=== PATIENT | female | born 1985 | race Caucasian/White ===

== ENCOUNTER 2019-07-03 07:47 | Day surgery (SDC) | payer BC, OTHER ==
[~2019-07-03] VITALS: Ht 172.7 cm; Wt 116.9 kg
[2019-07-03] VITALS (10 sets, daily range): BP systolic 103–142; BP diastolic 56–75; PULSE 54–68; TEMP 97.6–97.9
[~2019-07-03 07:47] MED LIST: MOTRIN 600600 MG/TAB PO; MOTRIN 800800 MG/TAB PO; PERCOCET 325 MG1 TA2 PO
[2019-07-03] MEDS ORDERED: MOBIC15 MG PO (08:29)
[2019-07-03] MEDS ORDERED: MULTIPLE VITAMI1 CAP PO (08:30)
--- NOTE | 2019-07-03 08:32 | NUR ---
TO RM AT 0758- CALL LIGHT IN REACH AT BEDSIDE
--- NOTE | 2019-07-03 12:30 | NUR ---
Patient to room 221 via bed from PACU. Patient sleepy, but arouses to name and answers questions appropriately. IV to left wrist with LR infusing per orders. 4 bandaids to abdomen, CDI. SCDs on. Plan of care reviewed. Call light within reach.
[2019-07-04 01:45] VITALS: BP 116/62; PULSE 61; TEMP 98
[2019-07-04 04:44] VITALS: BP 112/64; PULSE 69; TEMP 97.9
--- NOTE | 2019-07-04 07:00 | NUR ---
0700-Patient ambulatory on unit, steady gait. Attempts voiding 900ml clear yellow urine. Asssessment complete. Abdomen with robotic sites x 4 covered with bandaids C/D/I. Denies flatus or nausea. Updated on plan of care.
[2019-07-04 07:43] VITALS: BP 108/53; PULSE 55; TEMP 98
--- NOTE | 2019-07-04 09:34 | NUR ---
MD ROUNDS, GIVES DISCHARGE INSTUCTIONS.
--- NOTE | 2019-07-04 10:35 | NUR ---
1035-REVIEWED DISCHARGE INSTRUCTIONS AND FOLLOW UP UP INSTRUCTIONS. DENIES QUESTIONS. 1050-AMBULATORY OFF UNIT WITH SPOUSE.
== END 2019-07-04 10:50 | disposition home or self-care (01) ==
LOC: SDCO 07:47 → OB 11:42 → SDCO 07-04 10:50
PROVIDERS: Obstetrics & Gynecology
DX: N93.8 Other specified abnormal uterine and vaginal bleeding (principal); N72 Inflammatory disease of cervix uteri; N80.0 Endometriosis of uterus; D64.9 Anemia, unspecified; Z88.8 Allergy status to other drugs, medicaments and biological substances; Z80.8 Family history of malignant neoplasm of other organs or systems; Z82.49 Family history of ischemic heart disease and other diseases of the circulatory system
CPT/HCPCS: OP; A4314; J1100; J1170; J1885; J2405; J2704; J2710; J3010; J7120